=== PATIENT | male | born 1960 | race African-American/Black ===

== ENCOUNTER 2019-02-15 21:02 | Inpatient (IN) | payer MEDICAID ==
[~2019-02-15] VITALS: Ht 175.3 cm; Wt 89.8 kg
[2019-02-15 21:03] VITALS: BP 190/110
--- NOTE | 2019-02-15 21:03 | NUR ---
ED Nurse Note: Patient brought in by RA due to chest pain on right side. Stated that he has been hospitalized last 4 days ago due to haert attack. Pt has medical history of [place]. Alert and oriented, verbally responisve. Afebrile. No SOB. Breathing even and unlabored. BP is 190/110. Place pt on manager cardiac cath.
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
[2019-02-15] MEDS ORDERED: Aspirin Baby 81mg ORAL ONE (21:15)
[2019-02-15] MEDS ORDERED: Nitroglycerin Subl 0.4mg tab SL PRN (21:15)
--- NOTE | 2019-02-15 21:16 | NUR ---
ED Nurse Note: IV line established. Blood collected and sent to lab.
--- NOTE | 2019-02-15 21:17 | NUR ---
ED Nurse Note: Xray at bedside.
--- NOTE | 2019-02-15 21:23 | NUR ---
ED Nurse Note: NTG SL 1 tab given. BP 168/102.
[2019-02-15 21:36] LABS: HEMATOCRIT 41.5 % (42.0-52.0); HEMOGLOBIN 14.1 G/DL (14.2-18.0); LYMPHOCYTES % (AUTO) 15.3 % (20.0-45.0); MEAN CORPUSCULAR VOLUME 86 FL (80-99); MONOCYTES % (AUTO) 7.9 % (1.0-10.0); NEUTROPHILS % (AUTO) 74.7 % (45.0-75.0); PLATELET COUNT 335 K/UL (150-450); RED CELL DISTRIBUTION WIDTH 12.3 % (11.6-14.8); WHITE BLOOD COUNT 7.9 K/UL (4.8-10.8)
[2019-02-15 21:56] LABS: ANION GAP 4 mmol/L (5-15); BLOOD UREA NITROGEN 16 mg/dL (7-18); CALCIUM 8.7 MG/DL (8.5-10.1); CARBON DIOXIDE 31 MMOL/L (21-32); CHLORIDE 103 MMOL/L (98-107); CREATININE 1.4 MG/DL (0.55-1.30); POTASSIUM 3.3 MMOL/L (3.5-5.1); SODIUM 138 MMOL/L (136-145)
[2019-02-15 22:08] LABS: ALANINE AMINOTRANSFERASE 17 U/L (12-78); ALBUMIN 3.1 G/DL (3.4-5.0); ALBUMIN/GLOBULIN RATIO 0.6 (1.0-2.7); ALKALINE PHOSPHATASE 79 U/L (46-116); ASPARTATE AMINO TRANSFERASE 11 U/L (15-37)
[2019-02-15] MEDS ORDERED: Enoxaparin 80mg Inj SUBQ ONE (22:15)
--- NOTE | 2019-02-15 22:15 | NUR ---
ED Nurse Note: Urine collected and sent to lab.
[2019-02-15 22:23] LABS: BILIRUBIN,TOTAL 0.3 MG/DL (0.2-1.0)
[2019-02-15 22:27] LABS: APPEARANCE,URINE SLIGHTLY CLOUDY; BILIRUBIN, URINE NEGATIVE (NEGATIVE); COLOR,URINE YELLOW; GLUCOSE, URINE (UA) NEGATIVE (NEGATIVE); KETONES,URINE 1+ (NEGATIVE); PROTEIN,URINE 2+ (NEGATIVE)
[2019-02-15 22:28] LABS: LEUKOCYTE ESTERASE ,URINE NEGATIVE (NEGATIVE); NITRITE,URINE NEGATIVE (NEGATIVE); UROBILINOGEN,URINE 4 MG/DL (0.0-1.0)
--- NOTE | 2019-02-15 23:14 | NUR ---
ED Nurse Note: Snacks provided per request.
[2019-02-15 23:15] VITALS: BP 154/93
[2019-02-15] MEDS ORDERED: ASPIRIN81 MG ORAL (23:58)
[2019-02-16] VITALS (8 sets, daily range): BP systolic 130–170; BP diastolic 84–108
--- NOTE | 2019-02-16 00:13 | NUR ---
ED Nurse Note: Report given to Angelo TRIPLETT from Tele.
--- NOTE | 2019-02-16 00:26 | NUR ---
TRANSFER TO FLOOR: Patient transferred to Telemetry unit. Report given to Angelo TRIPLETT. Pt alert and oriented, verbally responsive. No SOB. Sinus rhythm. IV line on right AC 20g patent and intact. Med recon done. Swabs are sent. All belongings was given to the patient.
--- NOTE | 2019-02-16 00:38 | NUR ---
NURSE NOTES: received report from Sita TRIPLETT, pt. in bed awake, A/O x's4- able to make needs known, no signs or symptoms of acute cardiac or respiratory distress noted, bed alarm on, side rails up x's3 and safety brakes engaged, call light within easy each- pt. aware to ask for assist and not to ambulate as he does not have good strength in both feet. Pt. teaching done and pt. oriented to room, VS taken- will notify DR. Alexander as b/p is elevated- pt. mentioned that his blood pressure is usually high. Pt. mentioned that he does not remember the medications he is taking. Full body assessment done- skin intact - bilateral feet dry and cracked heels. pt. has urinal at bedside and within easy reach, RT. AC 20G- IV intact and patent. Safety measures continued, will continue with plan of care.
--- NOTE | 2019-02-16 00:44 | NUR ---
NURSE NOTES: Left message for DR. Alexander for new admission orders- awaiting for call back from doctor.
--- NOTE | 2019-02-16 01:37 | NUR ---
NURSE NOTES: Left message again for DR. Alexander for admission orders-awaiting for call back from doctor.
--- NOTE | 2019-02-16 02:20 | NUR ---
NURSE NOTES: Left message again for DR. Alexander for admission orders-awaiting for call back from doctor. Also made warehouse forklift operator Yeny Rivera aware- unable to reach Dr. Alexander. insurance sales supervisor will notify DR. Alexander.
--- NOTE | 2019-02-16 03:18 | NUR ---
NURSE NOTES: reassessed pt. - pt. in room watching television- denies chest pain or any other body pain. Pt. appears to be resting comfortably in room and no distress noted.
--- NOTE | 2019-02-16 03:54 | NUR ---
NURSE NOTES: made mixing house operator aware- pts. b/p now is 170/99 heart rate 72- she will contact DR. Alexander- awaiting for call back from doctor.
--- NOTE | 2019-02-16 04:53 | NUR ---
NURSE NOTES: reassessed pt. - pt. in bed asleep. Pt. appears to be resting comfortably in room and no distress noted.
--- NOTE | 2019-02-16 06:33 | NUR ---
NURSE NOTES: Dr. Alexander- called with admission orders- orders carried out.
--- NOTE | 2019-02-16 06:58 | NUR ---
HAND-OFF: Report given to My RN, pt. remains stable and no signs of distress noted- nurse aware to f/u on labs and do EKG / 2d Echo.
[2019-02-16 07:22] LABS: ANION GAP 9 mmol/L (5-15); BLOOD UREA NITROGEN 15 mg/dL (7-18); CALCIUM 8.4 MG/DL (8.5-10.1); CARBON DIOXIDE 25 MMOL/L (21-32); CHLORIDE 108 MMOL/L (98-107); CREATININE 1.1 MG/DL (0.55-1.30); POTASSIUM 3.5 MMOL/L (3.5-5.1); SODIUM 142 MMOL/L (136-145)
[2019-02-16 07:23] LABS: BASOPHILS % (AUTO) 1.3 % (0.0-2.0); EOSINOPHILS % (AUTO) 2.8 % (0.0-3.0); HEMATOCRIT 37.6 % (42.0-52.0); HEMOGLOBIN 12.7 G/DL (14.2-18.0); MEAN CORPUSCULAR VOLUME 86 FL (80-99); MONOCYTES % (AUTO) 12.4 % (1.0-10.0); NEUTROPHILS % (AUTO) 61.5 % (45.0-75.0); PLATELET COUNT 299 K/UL (150-450); RED BLOOD COUNT 4.38 M/UL (4.70-6.10); RED CELL DISTRIBUTION WIDTH 11.9 % (11.6-14.8); WHITE BLOOD COUNT 5.8 K/UL (4.8-10.8)
[2019-02-16 07:26] LABS: ALANINE AMINOTRANSFERASE 15 U/L (12-78); ALBUMIN 2.7 G/DL (3.4-5.0); ALBUMIN/GLOBULIN RATIO 0.6 (1.0-2.7); ALKALINE PHOSPHATASE 72 U/L (46-116); ASPARTATE AMINO TRANSFERASE 11 U/L (15-37); BILIRUBIN,TOTAL 0.3 MG/DL (0.2-1.0); CHOLESTEROL 114 MG/DL (< 200); HDL CHOLESTEROL 37 MG/DL (40-60); PHOSPHORUS 3.4 MG/DL (2.5-4.9); TRIGLYCERIDES 35 MG/DL (30-150)
--- NOTE | 2019-02-16 07:47 | NUR ---
NURSE NOTES: pt in bed having breakfast. Pt on federal aid coordinator no signs of cardiac or respiratory distress. Bed locked and in lowest position. CAll light is within reach of the pt. Will continue to follow plans of care.
[2019-02-16] MEDS: Atorvastatin 80mg tab ORAL SCH (08:17)
[2019-02-16] MEDS: Carvedilol 6.25mg Tab ORAL SCH ×2 (08:17→21:30)
[2019-02-16] MEDS: Imdur 30mg tab ORAL SCH (08:17)
[2019-02-16] MEDS: Aspirin Baby 81mg ORAL SCH (08:18)
[2019-02-16] MEDS ORDERED: Enoxaparin 80mg Inj SUBQ SCH (09:00)
--- NOTE | 2019-02-16 10:15 | NUR ---
NURSE NOTES: Notified Dr. Alexander about pt's ECG. No new orders given.
--- NOTE | 2019-02-16 10:58 | NUR ---
CASE MANAGEMENT:REVIEW 58 YR OLD MALE BIBA [facility]; CHEST PAIN SI: ACS. HTN 98.9 95 18 190/110 99% ON RA TROPONIN(+) 0.241 IS: ASA PO LOVENOX SQ NORVASC PO : TO TELEMETRY UNIT IS: IMDUR PO QD COREG PO Q12 ASA PO QD LOVENOX SQ BIS *INTERQUAL CRITERIA MET
--- NOTE | 2019-02-16 11:01 | Diagnostic Imaging Report ---
Indication: Chest pain Comparison: None A single view chest radiograph was obtained. Findings: Cardiomediastinal appearance is within normal limits for age and accounting for the low lung volumes. The lungs are clear. Pulmonary vascularity is appropriate. The diaphragmatic contour is smooth and costophrenic angles are sharp. No pleural effusions are identified. The bones are unremarkable. Impression: No acute findings
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
--- NOTE | 2019-02-16 11:32 | NUR ---
NURSE NOTES: notified Dr. Porras about low Mg levels.
--- NOTE | 2019-02-16 13:29 | NUR ---
HOMELESS COORDINATOR HC spoke with patient and patient is alert and oriented. Patient does not have a contact number. Patient states he is chronically homeless. Patient would like resources for a jail. Patient states he has been homeless for 1 year due to having an heart attack and losing his job and apartment. Patient states he has been living around [facility]. Patient doesn't have a veterans contact representative. Patient has no income. Patient states he doesn't suffer from substance or mental illness. HC referred patient to [facility]. Brendan at [facility] is willing to accept patient upon discharge. Please call Brendan before sending Patient to location. [facility] [address] [place] [address] . Hc provided resource for community clinics as well. Patient continues to require medical intervention. Will continue to monitor and assist as needed.
--- NOTE | 2019-02-16 14:40 | NUR ---
SS note This Sw met with patient due to homelessness. Elida, Homeless Coordinator also following and has located a bed with [facility] upon discharge. Patient is ambulatory with walker, but stating he has been weak with this. This Sw encouraged nursing to ambulate patient as well as P.T to evaluate/treat. Patient denied any substance abuse or mental health concerns. Patient does not verbalize any suicidal or homicidal ideations at this time. No other needs/concerns present at this time.
--- NOTE | 2019-02-16 14:50 | NUR ---
NURSE NOTES: pt has right upper quadrant pain, will give pain meds. pt is not complaining about chest pain.
--- NOTE | 2019-02-16 15:40 | Cardiology Report ---
APPROVED REPORT EXAM: Two-dimensional and M-mode echocardiogram with Doppler and color Doppler. INDICATION Chest Pain M-Mode DIMENSIONS IVSd1.4 (0.7-1.1cm)Left Atrium (MM)4.0 (1.6-4.0cm) LVDd5.1 (3.5-5.6cm)Aortic Root3.3 (2.0-3.7cm) PWd1.4 (0.7-1.1cm)Aortic Cusp Exc.2.0 (1.5-2.0cm) LVDs3.6 (2.5-4.0cm) PWs1.5 cm Global left ventricular hypokinesis. Normal left ventricular chamber size. Left ventricular ejection fraction estimated to be 35-40 %. Mild left ventricular hypertrophy. No evidence of pericardial effusion. All other cardiac chamber sizes are within normal limits. Focal aortic valve sclerosis with adequate cusp excursion. Thickened mitral valve leaflets with normal excursion. Mitral annulus and aortic root calcification. Normal pulmonic valve structure. Normal tricuspid valve structure. IVC is normal in size with physiological collapse. A color flow and spectral Doppler study was performed and revealed: No aortic regurgitation. Mild mitral regurgitation. Mitral diastolic velocities suggest mild left ventricular diastolic dysfunction (Grade I). No tricuspid regurgitation. No pulmonic regurgitation present.
--- NOTE | 2019-02-16 19:32 | Cardiology Progress Note ---
Assessment/Plan Assessment/Plan icm , abn mpi with neg cardiac cath at [facility] 02/05/2019 ekg unchanged mpi had showe ef 34% at [facility] trop no peak no ndair cr 1.4 no further kelley as all have just been performed he only co abd pain and gas deneis nay cp to m[place] [id number] Objective Last 24 Hour Vital Signs Date Time Temp Pulse Resp B/P (MAP) Pulse Ox O2 Delivery O2 Flow Rate FiO2 02/16/19 16:01 97.8 93 18 130/102 (111) 97 02/16/19 16:00 80 02/16/19 16:00 1.0 02/16/19 12:00 98.1 82 20 156/108 (124) 98 02/16/19 12:00 1.0 02/16/19 12:00 85 02/16/19 09:00 Nasal Cannula 2.0 02/16/19 08:17 81 156/99 02/16/19 08:17 156/99 02/16/19 08:10 97.0 81 18 156/99 (118) 97 02/16/19 08:00 1.0 02/16/19 08:00 80 02/16/19 04:00 2.0 02/16/19 03:56 66 02/16/19 03:51 97.9 72 18 170/99 (122) 100 02/16/19 00:53 97.0 85 18 169/97 (121) 94 02/16/19 00:47 2.0 02/16/19 00:40 Nasal Cannula 2.0 02/16/19 00:33 83 02/16/19 00:26 98.2 88 19 144/87 97 02/16/19 00:26 98.2 88 19 144/87 97 Room Air 02/16/19 00:19 95 154/93 02/15/19 23:15 98.5 95 23 154/93 96 Room Air 02/15/19 21:23 190/110 02/15/19 21:03 99.0 97 21 190/110 97 Room Air 02/15/19 21:03 95 18 Room Air 02/15/19 20:55 99.0 95 18 190/110 (136) 99 Room Air Intake and Output 02/15/19 02/16/19 19:00 07:00 # Voids 3 Laboratory Tests Test 02/15/19 21:16 02/15/19 22:03 02/16/19 06:55 02/16/19 14:00 White Blood Count 7.9 K/UL (4.8-10.8) 5.8 K/UL (4.8-10.8) Red Blood Count 4.80 M/UL (4.70-6.10) 4.38 M/UL (4.70-6.10) L Hemoglobin 14.1 G/DL (14.2-18.0) L 12.7 G/DL (14.2-18.0) L Hematocrit 41.5 % (42.0-52.0) L 37.6 % (42.0-52.0) L Mean Corpuscular Volume 86 FL (80-99) 86 FL (80-99) Mean Corpuscular Hemoglobin 29.3 PG (27.0-31.0) 29.1 PG (27.0-31.0) Mean Corpuscular Hemoglobin Concent 33.9 G/DL (32.0-36.0) 33.9 G/DL (32.0-36.0) Red Cell Distribution Width 12.3 % (11.6-14.8) 11.9 % (11.6-14.8) Platelet Count 335 K/UL (150-450) 299 K/UL (150-450) Mean Platelet Volume 6.1 FL (6.5-10.1) L 5.7 FL (6.5-10.1) L Neutrophils (%) (Auto) 74.7 % (45.0-75.0) 61.5 % (45.0-75.0) Lymphocytes (%) (Auto) 15.3 % (20.0-45.0) L 22.0 % (20.0-45.0) Monocytes (%) (Auto) 7.9 % (1.0-10.0) 12.4 % (1.0-10.0) H Eosinophils (%) (Auto) 1.0 % (0.0-3.0) 2.8 % (0.0-3.0) Basophils (%) (Auto) 1.0 % (0.0-2.0) 1.3 % (0.0-2.0) Sodium Level 138 MMOL/L (136-145) 142 MMOL/L (136-145) Potassium Level 3.3 MMOL/L (3.5-5.1) L 3.5 MMOL/L (3.5-5.1) Chloride Level 103 MMOL/L (98-107) 108 MMOL/L (98-107) H Carbon Dioxide Level 31 MMOL/L (21-32) 25 MMOL/L (21-32) Anion Gap 4 mmol/L (5-15) L 9 mmol/L (5-15) Blood Urea Nitrogen 16 mg/dL (7-18) 15 mg/dL (7-18) Creatinine 1.4 MG/DL (0.55-1.30) H 1.1 MG/DL (0.55-1.30) Estimat Glomerular Filtration Rate 52.2 mL/min (>60) > 60 mL/min (>60) Glucose Level 116 MG/DL (74-106) H 98 MG/DL (74-106) Calcium Level 8.7 MG/DL (8.5-10.1) 8.4 MG/DL (8.5-10.1) L Total Bilirubin 0.3 MG/DL (0.2-1.0) 0.3 MG/DL (0.2-1.0) Aspartate Amino Transf (AST/SGOT) 11 U/L (15-37) L 11 U/L (15-37) L Alanine Aminotransferase (ALT/SGPT) 17 U/L (12-78) 15 U/L (12-78) Alkaline Phosphatase 79 U/L (46-116) 72 U/L (46-116) Troponin I 0.241 ng/mL (0.000-0.056) 0.220 ng/mL (0.000-0.056) 0.218 ng/mL (0.000-0.056) Pro-B-Type Natriuretic Peptide 995 pg/mL (0-125) H Total Protein 8.2 G/DL (6.4-8.2) 7.3 G/DL (6.4-8.2) Albumin 3.1 G/DL (3.4-5.0) L 2.7 G/DL (3.4-5.0) L Globulin 5.1 g/dL 4.6 g/dL Albumin/Globulin Ratio 0.6 (1.0-2.7) L 0.6 (1.0-2.7) L Serum Alcohol < 3 mg/dL Urine Color Yellow Urine Appearance Slightly cloudy Urine pH 5.0 (4.5-8.0) Urine Specific [place] 1.030 (1.005-1.035) Urine Protein 2+ (NEGATIVE) H Urine Glucose (UA) Negative (NEGATIVE) Urine Ketones 1+ (NEGATIVE) H Urine Blood 3+ (NEGATIVE) H Urine Nitrite Negative (NEGATIVE) Urine Bilirubin Negative (NEGATIVE) Urine Urobilinogen 4 MG/DL (0.0-1.0) H Urine Leukocyte Esterase Negative (NEGATIVE) Urine RBC 15-20 /HPF (0 - 0) H Urine WBC 0-2 /HPF (0 - 0) Urine Squamous Epithelial Cells Occasional /LPF Urine Bacteria Moderate /HPF (NONE) H Urine Mucus Many /LPF (NONE/OCC) H Urine Opiates Screen Negative (NEGATIVE) Urine Barbiturates Screen Negative (NEGATIVE) Phencyclidine (PCP) Screen Negative (NEGATIVE) Urine Amphetamines Screen Negative (NEGATIVE) Urine Benzodiazepines Screen Negative (NEGATIVE) Urine Cocaine Screen Negative (NEGATIVE) Urine Marijuana (THC) Screen Negative (NEGATIVE) Phosphorus Level 3.4 MG/DL (2.5-4.9) Magnesium Level 1.7 MG/DL (1.8-2.4) L Triglycerides Level 35 MG/DL (30-150) Cholesterol Level 114 MG/DL (< 200) LDL Cholesterol 71 mg/dL (<100) HDL Cholesterol 37 MG/DL (40-60) L Cholesterol/HDL Ratio 3.1 (3.3-4.4) L Microbiology Date/Time Source Procedure Growth Status 02/15/19 23:50 Rectum Received Alessio Liao MD Feb 16, 2019 19:32
--- NOTE | 2019-02-16 19:44 | NUR ---
HAND-OFF: Report given to Brennen/RN, pt stable.
--- NOTE | 2019-02-16 19:45 | NUR ---
NURSE NOTES: Got report from My TRIPLETT. Pt in stable condition. Denies any pain. No s/s of distress or discomfort noted. Pt resting in bed comfortably. Bed in low and locked position, call light within reach, bedside table within reach. Continue to monitor.
[2019-02-16] MEDS: Enoxaparin Sodium 300mg/3ml vial SUBQ SCH (21:32)
[2019-02-17] VITALS: BP 150/90
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
[2019-02-17 04:00] VITALS: BP 117/64
--- NOTE | 2019-02-17 07:00 | NUR ---
HAND-OFF: Report given to My TRIPLETT.
--- NOTE | 2019-02-17 08:04 | NUR ---
NURSE NOTES: pt had breakfast. Pt on epic ambulatory analysts no signs of cardiac or respiratory distress. Pt is complaining of right upper abdomen pain 3/10. Bed locked and in lowest position. CAll light is within reach of the pt. Will continue to follow plans of care. pt might get DC today.
[2019-02-17 09:40] VITALS: BP 165/100
[2019-02-17] MEDS: Carvedilol 6.25mg Tab ORAL SCH ×2 (09:44→21:21)
[2019-02-17] MEDS: Atorvastatin 80mg tab ORAL SCH (09:44)
[2019-02-17] MEDS: Aspirin Baby 81mg ORAL SCH (09:44)
[2019-02-17] MEDS: Imdur 30mg tab ORAL SCH (09:45)
[2019-02-17] MEDS: Enoxaparin Sodium 300mg/3ml vial SUBQ SCH ×2 (09:51→21:22)
--- NOTE | 2019-02-17 14:11 | History & Physical ---
History and Physical History & Physicial Dictated for Int Med-Dr Alexander no. [id number]. Reji Bess MD Feb 17, 2019 14:11
--- NOTE | 2019-02-17 14:54 | Cardiology Report ---
APPROVED REPORT EKG Measurement Heart [id number] Normal sinus rhythm Possible Left atrial enlargement Left ventricular hypertrophy T wave abnormality, consider lateral ischemia Abnormal ECG
--- NOTE | 2019-02-17 15:26 | Cardiology Progress Note ---
Assessment/Plan Problem List: (1) Hypertension (2) ACS (acute coronary syndrome) (3) Chronic systolic (congestive) heart failure (4) CAD (coronary artery disease) Status: stable, progressing Status Narrative Mr Brownlee has CAD, w/ recent cath showing patent RCA stent and no significant L system disease ( [facility] 02/05/19) He has ischemic cm w /EF 35-40 % by ECHO this admission He has HTN, and BP is not well controlled. He had mild troponin elevation on adm, c/w demand ischemia . Assessment/Plan Will continue asa, plavix, statin and coreg. Add losartan for afterload reduction and BP control. Add aldactone for cm/chf followup labs in am Subjective ROS Limited/Unobtainable: No Subjective Cardiology for Pt reports no chest pain. Dyspnea has improved Objective Last 24 Hour Vital Signs Date Time Temp Pulse Resp B/P (MAP) Pulse Ox O2 Delivery O2 Flow Rate FiO2 02/17/19 09:45 100 165/100 02/17/19 09:45 165/100 02/17/19 09:44 96 165/100 02/17/19 09:40 99.0 100 20 165/100 (121) 98 02/17/19 04:00 97.7 81 18 117/64 (81) 96 02/17/19 04:00 77 02/17/19 00:00 98.5 80 18 150/90 (110) 100 02/17/19 00:00 78 02/16/19 21:30 85 138/84 02/16/19 21:30 85 138/84 02/16/19 21:00 Nasal Cannula 2.0 02/16/19 20:00 86 02/16/19 20:00 98.6 85 18 138/84 (102) 100 02/16/19 16:01 97.8 93 18 130/102 (111) 97 02/16/19 16:00 80 02/16/19 16:00 1.0 General Appearance: WD/WN, no apparent distress, alert EENT: PERRL/EOMI Neck: supple, no JVD Rhythm: NSR Cardiovascular: normal rate, regular rhythm, no gallop/murmur Respiratory/Chest: other - coarse BS bilat. no rales or wheezes Intake and Output 02/16/19 02/17/19 19:00 07:00 Intake Total 820 ml Balance 820 ml Intake Oral 820 ml # Voids 5 3 Microbiology Date/Time Source Procedure Growth Status 02/15/19 22:03 Urine,Clean Catch Urine Culture - Preliminary NO GROWTH AFTER 24 HOURS Resulted 02/15/19 23:50 Rectum Received Marisol Soliman MD Feb 17, 2019 15:26
--- NOTE | 2019-02-17 16:27 | NUR ---
PT Note PT anatoliy completed, treatment initiated. Patient has decreased muscle strength and balance with decreased coordination in all extremities requiring assist in mobility and gait. Patient needs PT to increase his muscle strength and balance to improve his safety in mobility and gait. Addendum: 02/17/19 at 1628 by DESMOND COTTO PT Amended: Links added.
--- NOTE | 2019-02-17 17:30 | NUR ---
CASE MANAGEMENT: REVIEW SI: ACS . HTN . CAD T 99.0 HR 102 RR 20 BP 165/100 SAT 98% NC/2L IS: ASA PO ISOSORBIDE PO QD COZAAR PO QD LOVENOX SUBQ Q12HR NORVASC PO Q12HR COREG PO Q12HR ALDACTONE PO QD PT EVAL TO TELEMETRY UNIT STATUS DCP: PATIENT REPORTS HOMELESSNESS
--- NOTE | 2019-02-17 19:00 | History and Physical Report ---
DATE OF ADMISSION: 02/15/2019 CHIEF COMPLAINT: The patient is a 58-year-old male, who presents with a chief complaint of chest pain. HISTORY OF PRESENT ILLNESS: The patient was admitted to [facility] at the beginning of February. The patient is status post cardiac catheterization on February 05, 2019. The patient's ejection fraction was 34% at that time. The patient presented to [place] emergency room complaining of one-day history of chest pain. Chest pain was substernal. The patient states "my heart is out." The patient states a friend had to restart his heart. The patient presented to [place] emergency room. The patient is admitted with chest pain to rule out acute coronary syndrome. PAST MEDICAL HISTORY: Significant for congestive heart failure. PAST SURGICAL HISTORY: Significant for cardiac catheterization on February 05, 2019 at [facility]. CURRENT MEDICATIONS: Aspirin 81 mg p.o. daily. ALLERGIES: No known drug allergies. SOCIAL HISTORY: The patient is single and is disabled. The patient admits to tobacco use of one cigarette daily. The patient admits to occasional alcohol use. PHYSICAL EXAMINATION: VITAL SIGNS: Temperature 97.9, respirations 18, pulse 72, blood pressure 170/99. GENERAL: The patient is a well-developed, well-nourished male, in no apparent distress. HEENT: Eyes, pupils are equal and responsive to light and accommodation. Extraocular movements are intact. NECK: Supple without lymphadenopathy. CHEST: Lungs are clear to auscultation bilaterally without wheezes or rales. CARDIOVASCULAR: Regular rate. S1, S2 normal without murmurs, rubs, or gallops. ABDOMEN: Soft, nontender, and nondistended. Positive bowel sounds. No evidence of hepatosplenomegaly. Currently, no rebound or guarding noted. EXTREMITIES: Negative for clubbing, cyanosis, or edema. NEUROLOGIC: Cranial nerves II through XII are grossly intact without focal deficits. Motor strength is 5/5 bilaterally. Deep tendon reflexes are 2+ plantar. LABORATORY STUDIES: WBC 7.9, hemoglobin 14.1, hematocrit 41.5, platelets 335,000. Sodium 138, potassium 3.3, chloride 103, CO2 31, BUN 16, creatinine 1.4, glucose 116. Troponin level was reported at 0.241 (elevated). BNP was elevated 995. Chest x-ray is reported as no acute disease. ASSESSMENT: This is a 58-year-old male. 1. Chest pain. 2. Elevated troponin. 3. Congestive heart failure. 4. Hypertension. TREATMENT: 1. Chest pain/elevated troponin. A Cardiology consultation has been obtained with Dr. Alessio Liao. An echocardiogram is pending. Initial troponin level was elevated. We will follow recommendations of Cardiology. The patient had recent workup by Cardiology at [facility]. Attempt to receive records from [facility]. 2. Congestive heart failure, as above. A Cardiology consultation has been obtained with Dr. Alessio Liao. 3. Hypertension. The patient has been started empirically on amlodipine and Coreg. Reji Bess M.D. DR: BEA JOB#: [id number] CC:
[2019-02-17 20:00] VITALS: BP 152/93
--- NOTE | 2019-02-17 20:19 | NUR ---
HAND-OFF: Report given to /RN endorsed plan of care. Pt has a DC order and will be going to [facility] upon DC. Physical therapy evaluation has been done.
[2019-02-18] VITALS: BP 145/95
[2019-02-18 04:00] VITALS: BP 150/90
--- NOTE | 2019-02-18 07:00 | NUR ---
HAND-OFF: Report given to Elida TRIPLETT.
--- NOTE | 2019-02-18 07:15 | NUR ---
NURSE NOTES: I received the patient resting in bed. Bed in the lowest position and call light within reach. Patient does not display any signs of distress or SOB. I will continue to monitor the patient and implement care.
[2019-02-18 07:35] LABS: BASOPHILS % (AUTO) 0.7 % (0.0-2.0); EOSINOPHILS % (AUTO) 1.5 % (0.0-3.0); HEMATOCRIT 38.5 % (42.0-52.0); HEMOGLOBIN 12.9 G/DL (14.2-18.0); LYMPHOCYTES % (AUTO) 18.9 % (20.0-45.0); MEAN CORPUSCULAR VOLUME 88 FL (80-99); MONOCYTES % (AUTO) 10.2 % (1.0-10.0); NEUTROPHILS % (AUTO) 68.7 % (45.0-75.0); PLATELET COUNT 336 K/UL (150-450); RED BLOOD COUNT 4.37 M/UL (4.70-6.10); WHITE BLOOD COUNT 7.2 K/UL (4.8-10.8)
[2019-02-18 07:44] LABS: ANION GAP 3 mmol/L (5-15); BLOOD UREA NITROGEN 15 mg/dL (7-18); CARBON DIOXIDE 29 MMOL/L (21-32); CHLORIDE 101 MMOL/L (98-107); CREATININE 1.1 MG/DL (0.55-1.30); POTASSIUM 3.8 MMOL/L (3.5-5.1); SODIUM 133 MMOL/L (136-145)
[2019-02-18 08:00] VITALS: BP 159/107
[2019-02-18] MEDS ORDERED: Losartan 25mg tab ORAL SCH (09:00)
[2019-02-18] MEDS: Spironolactone 25mg tab ORAL SCH (09:05)
[2019-02-18] MEDS: Carvedilol 6.25mg Tab ORAL SCH (09:05)
[2019-02-18] MEDS: Atorvastatin 80mg tab ORAL SCH (09:05)
[2019-02-18] MEDS: Aspirin Baby 81mg ORAL SCH (09:05)
[2019-02-18] MEDS: Imdur 30mg tab ORAL SCH (09:05)
[2019-02-18] MEDS: Enoxaparin Sodium 300mg/3ml vial SUBQ SCH ×2 (09:50→22:12)
[2019-02-18 12:00] VITALS: BP 136/92
--- NOTE | 2019-02-18 13:26 | Internal Med Progress Note ---
Subjective Date of Service: Feb 18, 2019 Physician Name Reji Bess Attending Physician Denis Alexander MD Current Medications Medications (Trade) Dose Ordered Sig/Leda Route PRN Reason Start Time Stop Time Status Last Admin Dose Admin Amlodipine Besylate (Norvasc) 5 mg EVERY 12 HOURS ORAL 02/16/19 21:00 03/18/19 20:59 02/18/19 09:05 Aspirin (ASA) 81 mg DAILY ORAL 02/16/19 09:00 03/18/19 08:59 02/18/19 09:05 Atorvastatin Calcium (Lipitor) 80 mg DAILY ORAL 02/16/19 09:00 03/18/19 08:59 02/18/19 09:05 Carvedilol (Coreg) 6.25 mg EVERY 12 HOURS ORAL 02/16/19 09:00 03/18/19 08:59 02/18/19 09:05 Clopidogrel Bisulfate (Plavix) 75 mg DAILY ORAL 02/17/19 09:00 03/19/19 08:59 02/18/19 09:05 Enoxaparin Sodium (Lovenox) 90 mg Q12HR SUBQ 02/16/19 21:00 03/18/19 08:59 02/18/19 09:50 Isosorbide Mononitrate (Imdur) 30 mg DAILY ORAL 02/16/19 09:00 03/18/19 08:59 02/18/19 09:05 Losartan Potassium (Cozaar) 25 mg DAILY ORAL 02/18/19 09:00 03/20/19 08:59 02/18/19 09:06 Nitroglycerin (Ntg) 0.4 mg Q5M PRN SL Prn Chest Pain 02/15/19 21:15 03/17/19 21:14 02/15/19 21:23 Spironolactone (Aldactone) 25 mg DAILY ORAL 02/18/19 09:00 03/20/19 08:59 02/18/19 09:05 Allergies: Coded Allergies: No Known Allergies (Unverified , 02/15/19) ROS Limited/Unobtainable: No Constitutional: Reports: no symptoms HEENT: Reports: no symptoms Cardiovascular: Reports: chest pain Respiratory: Reports: no symptoms Gastrointestinal/Abdominal: Reports: no symptoms Genitourinary: Reports: no symptoms Neurologic/Psychiatric: Reports: no symptoms Subjective 58 YO M admitted with chest pain and elevated troponin. Now hypertension urgency. Cover for Int Kevin-Dr Alexander Objective Last Vital Signs Date Time Temp Pulse Resp B/P (MAP) Pulse Ox O2 Delivery O2 Flow Rate FiO2 02/18/19 12:00 98.4 92 20 136/92 (107) 95 02/18/19 09:00 Room Air 02/17/19 21:00 2.0 Laboratory Tests Test 02/18/19 05:30 White Blood Count 7.2 K/UL (4.8-10.8) Red Blood Count 4.37 M/UL (4.70-6.10) L Hemoglobin 12.9 G/DL (14.2-18.0) L Hematocrit 38.5 % (42.0-52.0) L Mean Corpuscular Volume 88 FL (80-99) Mean Corpuscular Hemoglobin 29.5 PG (27.0-31.0) Mean Corpuscular Hemoglobin Concent 33.5 G/DL (32.0-36.0) Red Cell Distribution Width 13.0 % (11.6-14.8) Platelet Count 336 K/UL (150-450) Mean Platelet Volume 5.7 FL (6.5-10.1) L Neutrophils (%) (Auto) 68.7 % (45.0-75.0) Lymphocytes (%) (Auto) 18.9 % (20.0-45.0) L Monocytes (%) (Auto) 10.2 % (1.0-10.0) H Eosinophils (%) (Auto) 1.5 % (0.0-3.0) Basophils (%) (Auto) 0.7 % (0.0-2.0) Sodium Level 133 MMOL/L (136-145) L Potassium Level 3.8 MMOL/L (3.5-5.1) Chloride Level 101 MMOL/L (98-107) Carbon Dioxide Level 29 MMOL/L (21-32) Anion Gap 3 mmol/L (5-15) L Blood Urea Nitrogen 15 mg/dL (7-18) Creatinine 1.1 MG/DL (0.55-1.30) Estimat Glomerular Filtration Rate > 60 mL/min (>60) Glucose Level 88 MG/DL (74-106) Calcium Level 9.0 MG/DL (8.5-10.1) Troponin I 0.174 ng/mL (0.000-0.056) Pro-B-Type Natriuretic Peptide 618 pg/mL (0-125) H Microbiology Date/Time Source Procedure Growth Status 02/15/19 23:50 Nasal Nares MRSA Culture - Final NO METHICILLIN RESISTANT STAPH AUREUS... Complete 02/15/19 22:03 Urine,Clean Catch Urine Culture - Final NO GROWTH AFTER 48 HOURS Complete 02/15/19 23:50 Rectum - Final NO CARBAPENEM-RESISTANT ENTEROBACTERI... Complete 02/15/19 23:50 Rectum VRE Culture - Final NO VANCOMYCIN RESISTANT ENTEROCOCCUS ... Complete Intake and Output 02/17/19 02/18/19 18:59 06:59 Intake Total 800 ml 240 ml Output Total 600 ml Balance 800 ml -360 ml Intake Oral 240 ml Other 800 ml Output Urine Total 600 ml # Voids 3 Objective PHYSICAL EXAMINATION: GENERAL: The patient is a well-developed, well-nourished male, in no apparent distress. HEENT: Eyes, pupils are equal and responsive to light and accommodation. Extraocular movements are intact. NECK: Supple without lymphadenopathy. CHEST: Lungs are clear to auscultation bilaterally without wheezes or rales. CARDIOVASCULAR: Regular rate. S1, S2 normal without murmurs, rubs, or gallops. ABDOMEN: Soft, nontender, and nondistended. Positive bowel sounds. No evidence of hepatosplenomegaly. Currently, no rebound or guarding noted. EXTREMITIES: Negative for clubbing, cyanosis, or edema. NEUROLOGIC: Cranial nerves II through XII are grossly intact without focal deficits. Motor strength is 5/5 bilaterally. Deep tendon reflexes are 2+ plantar. Assessment/Plan Assessment/Plan ASSESSMENT: This is a 58-year-old male. 1. Chest pain. 2. Elevated troponin. 3. Congestive heart failure. 4. Hypertension. 5. Ischemic cardiomyopathy 6. Coronary artery disease TREATMENT: 1. Chest pain/elevated troponin. A Cardiology consultation has been obtained with Dr. Alessio Liao. An echocardiogram LVEF=35-40%. Initial troponin level was elevated. We will follow recommendations of Cardiology. The patient had recent cardiac cath by Cardiology at [facility]. Attempt to receive records from [facility]. 2. Congestive heart failure, as above. LVEF=35-40%. A Cardiology consultation has been obtained with Dr. Alessio Liao. 3. Hypertension urgency. Continue losartan, spironolactone, coreg and amlodipine per cardiology. Add PRN clonidine Reji Bess MD Feb 18, 2019 13:26
--- NOTE | 2019-02-18 15:16 | Cardiology Progress Note ---
Assessment/Plan Problem List: (1) Hypertension (2) ACS (acute coronary syndrome) (3) Chronic systolic (congestive) heart failure (4) CAD (coronary artery disease) Status: stable, progressing Status Narrative Mr Brownlee has CAD, w/ recent cath showing patent RCA stent and no significant L system disease ( [facility] 02/05/19) He has ischemic cm w /EF 35-40 % by ECHO this admission He has HTN, poorly controlled He had mild troponin elevation on adm, c/w demand ischemia . Assessment/Plan Continue asa, statin and coreg for CAD Uptitrate losartan for BP control and afterload reduction w/ cm. Followup am labs. Subjective ROS Limited/Unobtainable: No Subjective Cardiology for Pt reports mild chest pain and dyspnea w/ walking. Ambulated in halls w/ PT today. Objective Last 24 Hour Vital Signs Date Time Temp Pulse Resp B/P (MAP) Pulse Ox O2 Delivery O2 Flow Rate FiO2 02/18/19 12:00 98.4 92 20 136/92 (107) 95 02/18/19 11:56 91 02/18/19 09:06 159/107 02/18/19 09:05 98 159/107 02/18/19 09:05 98 159/107 02/18/19 09:05 159/107 02/18/19 09:00 Room Air 02/18/19 08:00 98.0 98 17 159/107 (124) 96 02/18/19 07:56 106 02/18/19 04:00 87 02/18/19 04:00 97.9 87 20 150/90 (110) 99 02/18/19 00:00 87 02/18/19 00:00 98.1 96 20 145/95 (112) 97 02/17/19 21:21 88 152/93 02/17/19 21:21 88 152/93 02/17/19 21:00 Nasal Cannula 2.0 02/17/19 20:00 99.2 88 18 152/93 (112) 99 02/17/19 20:00 95 02/17/19 16:00 94 General Appearance: WD/WN, no apparent distress, alert EENT: PERRL/EOMI Neck: non-tender, supple, no JVD Rhythm: NSR Cardiovascular: normal rate, regular rhythm, no gallop/murmur Respiratory/Chest: lungs clear Abdomen: non tender, soft, no mass Extremities: no swelling Intake and Output 02/17/19 02/18/19 18:59 06:59 Intake Total 800 ml 240 ml Output Total 600 ml Balance 800 ml -360 ml Intake Oral 240 ml Other 800 ml Output Urine Total 600 ml # Voids 3 Laboratory Tests Test 02/18/19 05:30 White Blood Count 7.2 K/UL (4.8-10.8) Red Blood Count 4.37 M/UL (4.70-6.10) L Hemoglobin 12.9 G/DL (14.2-18.0) L Hematocrit 38.5 % (42.0-52.0) L Mean Corpuscular Volume 88 FL (80-99) Mean Corpuscular Hemoglobin 29.5 PG (27.0-31.0) Mean Corpuscular Hemoglobin Concent 33.5 G/DL (32.0-36.0) Red Cell Distribution Width 13.0 % (11.6-14.8) Platelet Count 336 K/UL (150-450) Mean Platelet Volume 5.7 FL (6.5-10.1) L Neutrophils (%) (Auto) 68.7 % (45.0-75.0) Lymphocytes (%) (Auto) 18.9 % (20.0-45.0) L Monocytes (%) (Auto) 10.2 % (1.0-10.0) H Eosinophils (%) (Auto) 1.5 % (0.0-3.0) Basophils (%) (Auto) 0.7 % (0.0-2.0) Sodium Level 133 MMOL/L (136-145) L Potassium Level 3.8 MMOL/L (3.5-5.1) Chloride Level 101 MMOL/L (98-107) Carbon Dioxide Level 29 MMOL/L (21-32) Anion Gap 3 mmol/L (5-15) L Blood Urea Nitrogen 15 mg/dL (7-18) Creatinine 1.1 MG/DL (0.55-1.30) Estimat Glomerular Filtration Rate > 60 mL/min (>60) Glucose Level 88 MG/DL (74-106) Calcium Level 9.0 MG/DL (8.5-10.1) Troponin I 0.174 ng/mL (0.000-0.056) Pro-B-Type Natriuretic Peptide 618 pg/mL (0-125) H Microbiology Date/Time Source Procedure Growth Status 02/15/19 23:50 Nasal Nares MRSA Culture - Final NO METHICILLIN RESISTANT STAPH AUREUS... Complete 02/15/19 22:03 Urine,Clean Catch Urine Culture - Final NO GROWTH AFTER 48 HOURS Complete 02/15/19 23:50 Rectum - Final NO CARBAPENEM-RESISTANT ENTEROBACTERI... Complete 02/15/19 23:50 Rectum VRE Culture - Final NO VANCOMYCIN RESISTANT ENTEROCOCCUS ... Complete Marisol Soliman MD Feb 18, 2019 15:16
[2019-02-18 16:00] VITALS: BP 145/85
--- NOTE | 2019-02-18 19:15 | NUR ---
HAND-OFF: Report given to Jennifer English RN.
--- NOTE | 2019-02-18 19:36 | NUR ---
NURSE NOTES: RECEIVED PATIENT RESTING IN BED, DENIES CHEST PAIN AT THIS TIME. FALL PRECAUTIONS IN PLACE: CALL LIGHT, BEDSIDE TABLE AND URINAL WITHIN REACH, BED IN LOW POSITION AND BED ALARM ON. WILL CONTINUE WITH PLAN OF CARE.
[2019-02-18 20:00] VITALS: BP 153/92
[2019-02-18] MEDS: Carvedilol 12.5mg tab ORAL SCH (21:21)
[2019-02-19] VITALS: BP 145/80
[2019-02-19 04:00] VITALS: BP 154/90
--- NOTE | 2019-02-19 07:24 | NUR ---
HAND-OFF: Report given to Roddy PANIAGUA RN. PATIENT RESTING IN BED, NO SIGNS OF DISTRESS NOTED.
--- NOTE | 2019-02-19 07:56 | NUR ---
NURSE NOTES: pt had breakfast. Pt on bus monitor no signs of cardiac or respiratory distress. Pt is complaining pain. Bed locked and in lowest position. Call light is within reach of the pt. Will continue to follow plans of care. Plans of DC to [facility].
[2019-02-19 08:13] LABS: BASOPHILS % (AUTO) 1.2 % (0.0-2.0); EOSINOPHILS % (AUTO) 1.5 % (0.0-3.0); HEMATOCRIT 37.9 % (42.0-52.0); HEMOGLOBIN 12.8 G/DL (14.2-18.0); LYMPHOCYTES % (AUTO) 21.7 % (20.0-45.0); MEAN CORPUSCULAR VOLUME 86 FL (80-99); MONOCYTES % (AUTO) 10.5 % (1.0-10.0); NEUTROPHILS % (AUTO) 65.2 % (45.0-75.0); PLATELET COUNT 344 K/UL (150-450); RED BLOOD COUNT 4.41 M/UL (4.70-6.10); WHITE BLOOD COUNT 6.9 K/UL (4.8-10.8)
[2019-02-19 08:48] LABS: ANION GAP 11 mmol/L (5-15); BLOOD UREA NITROGEN 16 mg/dL (7-18); CALCIUM 9.2 MG/DL (8.5-10.1); CARBON DIOXIDE 24 MMOL/L (21-32); CHLORIDE 105 MMOL/L (98-107); CREATININE 1.1 MG/DL (0.55-1.30); SODIUM 140 MMOL/L (136-145)
[2019-02-19 09:00] VITALS: BP 146/116
[2019-02-19] MEDS ORDERED: Losartan 50mg tab ORAL SCH (09:00)
[2019-02-19] MEDS: Carvedilol 12.5mg tab ORAL SCH ×2 (09:38→20:57)
[2019-02-19] MEDS: Spironolactone 25mg tab ORAL SCH (09:38)
[2019-02-19] MEDS: Aspirin Baby 81mg ORAL SCH (09:38)
[2019-02-19] MEDS: Atorvastatin 80mg tab ORAL SCH (09:39)
[2019-02-19] MEDS: Imdur 30mg tab ORAL SCH (09:39)
[2019-02-19] MEDS: Enoxaparin Sodium 300mg/3ml vial SUBQ SCH ×2 (09:41→20:56)
[2019-02-19] MEDS ORDERED: NORVASC5 MG ORAL (11:13)
[2019-02-19] MEDS ORDERED: SPIRONOLACTONE25 MG ORAL (11:13)
[2019-02-19] MEDS ORDERED: ISOSORBIDE MONO30 M1 ORAL (11:13)
[2019-02-19] MEDS ORDERED: COZAAR50 MG ORAL (11:13)
[2019-02-19] MEDS ORDERED: PLAVIX75 MG ORAL (11:13)
[2019-02-19] MEDS ORDERED: COREG12.5 MG ORAL (11:13)
--- NOTE | 2019-02-19 11:19 | Pulmonology Progress Note ---
Assessment/Plan Problems: (1) ACS (acute coronary syndrome) (2) Chronic systolic (congestive) heart failure (3) Hypertension (4) CAD (coronary artery disease) (5) Homelessness Assessment/Plan doing better pt is homeless and trying to stay in the hospital as long as possible. social service consult dc planning prescription written and signed. Subjective ROS Limited/Unobtainable: No Constitutional: Reports: no symptoms HEENT: Repors: no symptoms Respiratory: Reports: no symptoms Cardiovascular: Reports: no symptoms Allergies: Coded Allergies: No Known Allergies (Unverified , 02/15/19) Objective Last 24 Hour Vital Signs Date Time Temp Pulse Resp B/P (MAP) Pulse Ox O2 Delivery O2 Flow Rate FiO2 02/19/19 09:39 104 146/116 02/19/19 09:39 146/116 02/19/19 09:38 104 146/116 02/19/19 09:38 146/116 02/19/19 09:00 98.1 104 20 146/116 (126) 95 02/19/19 04:00 92 02/19/19 04:00 98.4 91 20 154/90 (111) 100 02/19/19 00:00 95 02/19/19 00:00 98.6 95 20 145/80 (101) 96 02/18/19 21:22 98 153/92 02/18/19 21:21 98 153/92 02/18/19 21:00 Room Air 02/18/19 20:00 99.6 98 20 153/92 (112) 98 02/18/19 20:00 98 02/18/19 16:00 98.4 91 19 145/85 (105) 95 02/18/19 15:29 90 02/18/19 12:00 98.4 92 20 136/92 (107) 95 02/18/19 11:56 91 Intake and Output 02/18/19 02/19/19 19:00 07:00 Intake Total 250 ml 120 ml Output Total 500 ml 1000 ml Balance -250 ml -880 ml Intake Oral 250 ml 120 ml Output Urine Total 500 ml 1000 ml # Voids 4 # Bowel Movements 1 General Appearance: WD/WN HEENT: normocephalic Respiratory/Chest: chest wall non-tender, lungs clear Cardiovascular: normal rate, regularly irregular Abdomen: soft, non tender, non distended Laboratory Tests 02/19/19 06:32: White Blood Count 6.9, Red Blood Count 4.41L, Hemoglobin 12.8L, Hematocrit 37.9L , Mean Corpuscular Volume 86, Mean Corpuscular Hemoglobin 29.1, Mean Corpuscular Hemoglobin Concent 33.9, Red Cell Distribution Width 12.0, Platelet Count 344, Mean Platelet Volume 5.7L, Neutrophils (%) (Auto) 65.2, Lymphocytes ( %) (Auto) 21.7, Monocytes (%) (Auto) 10.5H, Eosinophils (%) (Auto) 1.5, Basophils (%) (Auto) 1.2, Sodium Level 140, Potassium Level 4.0, Chloride Level 105, Carbon Dioxide Level 24, Anion Gap 11, Blood Urea Nitrogen 16, Creatinine 1.1, Estimat Glomerular Filtration Rate > 60, Glucose Level 86, Calcium Level 9.2, Troponin I 0.137H Current Medications Medications (Trade) Dose Ordered Sig/Leda Route PRN Reason Start Time Stop Time Status Last Admin Dose Admin Amlodipine Besylate (Norvasc) 5 mg EVERY 12 HOURS ORAL 02/16/19 21:00 03/18/19 20:59 02/19/19 09:39 Aspirin (ASA) 81 mg DAILY ORAL 02/16/19 09:00 03/18/19 08:59 02/19/19 09:38 Atorvastatin Calcium (Lipitor) 80 mg DAILY ORAL 02/16/19 09:00 03/18/19 08:59 02/19/19 09:39 Carvedilol (Coreg) 12.5 mg EVERY 12 HOURS ORAL 02/18/19 21:00 03/18/19 08:59 02/19/19 09:38 Clonidine HCl (Catapres Tab) 0.1 mg Q4H PRN ORAL For High Blood Pressure 02/18/19 13:30 03/20/19 13:29 Clopidogrel Bisulfate (Plavix) 75 mg DAILY ORAL 02/17/19 09:00 03/19/19 08:59 02/19/19 09:38 Enoxaparin Sodium (Lovenox) 90 mg Q12HR SUBQ 02/16/19 21:00 03/18/19 08:59 02/19/19 09:41 Isosorbide Mononitrate (Imdur) 30 mg DAILY ORAL 02/16/19 09:00 03/18/19 08:59 02/19/19 09:39 Losartan Potassium (Cozaar) 50 mg DAILY ORAL 02/19/19 09:00 03/20/19 08:59 02/19/19 09:38 Nitroglycerin (Ntg) 0.4 mg Q5M PRN SL Prn Chest Pain 02/15/19 21:15 03/17/19 21:14 02/15/19 21:23 Spironolactone (Aldactone) 25 mg DAILY ORAL 02/18/19 09:00 03/20/19 08:59 02/19/19 09:38 Pao Porras MD Feb 19, 2019 11:19
--- NOTE | 2019-02-19 11:40 | NUR ---
NURSE NOTES: spoke to sales and production manager /homeless coordinator about pt being weak to walk and needing a walker for assistance to walk. Awaiting a response from Elida/ homeless coordinator to see if space is still available and if using a walker and being weak will be an issue for acceptance to facility.
[2019-02-19 12:00] VITALS: BP 152/97
--- NOTE | 2019-02-19 12:09 | NUR ---
NURSE NOTES: fax prescription to [facility] pharmacy to fill out 6 prescriptions for this pt. Per George they will bring medications over before pt is DC today.
--- NOTE | 2019-02-19 12:35 | NUR ---
CASE MANAGEMENT:REVIEW 02/19/19 SI: CHEST PAIN. ELEVATED TROPONIN HYPERTENSIVE URGENCY 98.1 104 20 146/116 95% ON RA H/H-12.8/37.9 TROPONIN(+) 0.137 IS: COZAAR PO Q12 ALDACTONE PO QD PLAVIX PO QD LOVENOX SQ Q12 NORVASC PO Q12 IMDUR PO QD LIPITOR PO QHS ASA PO QD : TELEMETRY STATUS DCP: HOMELESS ~ HOMELESS MILL HAND IS AWARE
[2019-02-19 16:00] VITALS: BP 147/92
--- NOTE | 2019-02-19 17:12 | NUR ---
Per Elida Smith, Homeless coordinator, Brendan from [facility] requested patient to be sent there in AM. Per Elida, Pt. will be accepted at [facility] in AM.
--- NOTE | 2019-02-19 18:31 | Internal Med Progress Note ---
Subjective Date of Service: Feb 19, 2019 Physician Name Reji Bess Attending Physician Denis Alexander MD Current Medications Medications (Trade) Dose Ordered Sig/Leda Route PRN Reason Start Time Stop Time Status Last Admin Dose Admin Amlodipine Besylate (Norvasc) 5 mg EVERY 12 HOURS ORAL 02/16/19 21:00 03/18/19 20:59 02/19/19 09:39 Aspirin (ASA) 81 mg DAILY ORAL 02/16/19 09:00 03/18/19 08:59 02/19/19 09:38 Atorvastatin Calcium (Lipitor) 80 mg DAILY ORAL 02/16/19 09:00 03/18/19 08:59 02/19/19 09:39 Carvedilol (Coreg) 12.5 mg EVERY 12 HOURS ORAL 02/18/19 21:00 03/18/19 08:59 02/19/19 09:38 Clonidine HCl (Catapres Tab) 0.1 mg Q4H PRN ORAL For High Blood Pressure 02/18/19 13:30 03/20/19 13:29 Clopidogrel Bisulfate (Plavix) 75 mg DAILY ORAL 02/17/19 09:00 03/19/19 08:59 02/19/19 09:38 Enoxaparin Sodium (Lovenox) 90 mg Q12HR SUBQ 02/16/19 21:00 03/18/19 08:59 02/19/19 09:41 Isosorbide Mononitrate (Imdur) 30 mg DAILY ORAL 02/16/19 09:00 03/18/19 08:59 02/19/19 09:39 Losartan Potassium (Cozaar) 50 mg DAILY ORAL 02/19/19 09:00 03/20/19 08:59 02/19/19 09:38 Nitroglycerin (Ntg) 0.4 mg Q5M PRN SL Prn Chest Pain 02/15/19 21:15 03/17/19 21:14 02/15/19 21:23 Spironolactone (Aldactone) 25 mg DAILY ORAL 02/18/19 09:00 03/20/19 08:59 02/19/19 09:38 Allergies: Coded Allergies: No Known Allergies (Unverified , 02/15/19) ROS Limited/Unobtainable: No Constitutional: Reports: no symptoms HEENT: Reports: no symptoms Cardiovascular: Reports: no symptoms Respiratory: Reports: no symptoms Gastrointestinal/Abdominal: Reports: no symptoms Genitourinary: Reports: no symptoms Neurologic/Psychiatric: Reports: no symptoms Subjective 58 YO M admitted with chest pain and elevated troponin. Now hypertension urgency. Cover for Whitney Alexander Objective Last Vital Signs Date Time Temp Pulse Resp B/P (MAP) Pulse Ox O2 Delivery O2 Flow Rate FiO2 02/19/19 09:39 104 146/116 02/19/19 09:00 98.1 20 95 02/18/19 21:00 Room Air 02/17/19 21:00 2.0 Laboratory Tests Test 02/19/19 06:32 White Blood Count 6.9 K/UL (4.8-10.8) Red Blood Count 4.41 M/UL (4.70-6.10) L Hemoglobin 12.8 G/DL (14.2-18.0) L Hematocrit 37.9 % (42.0-52.0) L Mean Corpuscular Volume 86 FL (80-99) Mean Corpuscular Hemoglobin 29.1 PG (27.0-31.0) Mean Corpuscular Hemoglobin Concent 33.9 G/DL (32.0-36.0) Red Cell Distribution Width 12.0 % (11.6-14.8) Platelet Count 344 K/UL (150-450) Mean Platelet Volume 5.7 FL (6.5-10.1) L Neutrophils (%) (Auto) 65.2 % (45.0-75.0) Lymphocytes (%) (Auto) 21.7 % (20.0-45.0) Monocytes (%) (Auto) 10.5 % (1.0-10.0) H Eosinophils (%) (Auto) 1.5 % (0.0-3.0) Basophils (%) (Auto) 1.2 % (0.0-2.0) Sodium Level 140 MMOL/L (136-145) Potassium Level 4.0 MMOL/L (3.5-5.1) Chloride Level 105 MMOL/L (98-107) Carbon Dioxide Level 24 MMOL/L (21-32) Anion Gap 11 mmol/L (5-15) Blood Urea Nitrogen 16 mg/dL (7-18) Creatinine 1.1 MG/DL (0.55-1.30) Estimat Glomerular Filtration Rate > 60 mL/min (>60) Glucose Level 86 MG/DL (74-106) Calcium Level 9.2 MG/DL (8.5-10.1) Troponin I 0.137 ng/mL (0.000-0.056) Intake and Output 02/18/19 02/19/19 18:59 06:59 Intake Total 250 ml 120 ml Output Total 500 ml 1000 ml Balance -250 ml -880 ml Intake Oral 250 ml 120 ml Output Urine Total 500 ml 1000 ml # Voids 4 # Bowel Movements 1 Objective PHYSICAL EXAMINATION: GENERAL: The patient is a well-developed, well-nourished male, in no apparent distress. HEENT: Eyes, pupils are equal and responsive to light and accommodation. Extraocular movements are intact. NECK: Supple without lymphadenopathy. CHEST: Lungs are clear to auscultation bilaterally without wheezes or rales. CARDIOVASCULAR: Regular rate. S1, S2 normal without murmurs, rubs, or gallops. ABDOMEN: Soft, nontender, and nondistended. Positive bowel sounds. No evidence of hepatosplenomegaly. Currently, no rebound or guarding noted. EXTREMITIES: Negative for clubbing, cyanosis, or edema. NEUROLOGIC: Cranial nerves II through XII are grossly intact without focal deficits. Motor strength is 5/5 bilaterally. Deep tendon reflexes are 2+ plantar. Assessment/Plan Assessment/Plan ASSESSMENT: This is a 58-year-old male. 1. Chest pain. 2. Elevated troponin. 3. Congestive heart failure. 4. Hypertension. 5. Ischemic cardiomyopathy 6. Coronary artery disease TREATMENT: 1. Chest pain/elevated troponin. A Cardiology consultation has been obtained with Dr. Alessio Liao. An echocardiogram LVEF=35-40%. Initial troponin level was elevated-trending down now. We will follow recommendations of Cardiology. The patient had recent cardiac cath by Cardiology at [facility]. Attempt to receive records from [facility]. 2. Congestive heart failure, as above. LVEF=35-40%. A Cardiology consultation has been obtained with Dr. Alessio Liao. 3. Hypertension urgency. Continue losartan, spironolactone, coreg and amlodipine per cardiology. Add PRN clonidine Reji Bess MD Feb 19, 2019 18:31
--- NOTE | 2019-02-19 19:40 | NUR ---
NURSE NOTES: Received pt and report from UZIEL Pepe. Observed pt resting in bed with both eyes open and watching television. Pt is A/Ox3. traffic monitor specialist is in placed, IV site intact, asymptomatic, and patent. Bed is in the lowest position and locked. Call light and bedside table within reach. No signs/symptoms of acute distress noted at this time. Will continue plan of care.
--- NOTE | 2019-02-19 19:50 | NUR ---
HAND-OFF: Report given to Matilda/rn pt in stable condition.
[2019-02-19 20:00] VITALS: BP 149/90
--- NOTE | 2019-02-19 20:02 | Cardiology Progress Note ---
Assessment/Plan Assessment/Plan 1. Coronary artery disease, status post stent in the posterolateral branch with negative cardiac catheterization approximately 10 days ago at [facility]. 2. Cardiomyopathy with ejection fraction 35 to 40%. 3. History of strokes previously with no hemodynamically significant cervical carotid stenosis; however, 60% stenosis in both cavernous carotid he seems to be very comfortable bp is still elevated will increase the cozaar further not appear to be sig chf trop min increased is on dapt statin , bb dc planning soon Subjective Cardiovascular: Reports: chest pain, lightheadedness Respiratory: Reports: shortness of breath Gastrointestinal/Abdominal: Reports: abdominal pain Genitourinary: Denies: burning Objective Last 24 Hour Vital Signs Date Time Temp Pulse Resp B/P (MAP) Pulse Ox O2 Delivery O2 Flow Rate FiO2 02/19/19 18:58 Nasal Cannula 2.0 02/19/19 16:00 99.3 90 20 147/92 (110) 95 02/19/19 16:00 91 02/19/19 12:00 98.1 95 19 152/97 (115) 95 02/19/19 12:00 96 02/19/19 09:39 104 146/116 02/19/19 09:39 146/116 02/19/19 09:38 104 146/116 02/19/19 09:38 146/116 02/19/19 09:00 98.1 104 20 146/116 (126) 95 02/19/19 08:00 88 02/19/19 04:00 92 02/19/19 04:00 98.4 91 20 154/90 (111) 100 02/19/19 00:00 95 02/19/19 00:00 98.6 95 20 145/80 (101) 96 02/18/19 21:22 98 153/92 02/18/19 21:21 98 153/92 02/18/19 21:00 Room Air General Appearance: no apparent distress Neck: supple Cardiovascular: normal rate Respiratory/Chest: lungs clear Abdomen: normal bowel sounds, non tender, soft Extremities: no swelling Intake and Output 02/18/19 02/19/19 18:59 06:59 Intake Total 250 ml 120 ml Output Total 500 ml 1000 ml Balance -250 ml -880 ml Intake Oral 250 ml 120 ml Output Urine Total 500 ml 1000 ml # Voids 4 # Bowel Movements 1 Laboratory Tests Test 02/19/19 06:32 White Blood Count 6.9 K/UL (4.8-10.8) Red Blood Count 4.41 M/UL (4.70-6.10) L Hemoglobin 12.8 G/DL (14.2-18.0) L Hematocrit 37.9 % (42.0-52.0) L Mean Corpuscular Volume 86 FL (80-99) Mean Corpuscular Hemoglobin 29.1 PG (27.0-31.0) Mean Corpuscular Hemoglobin Concent 33.9 G/DL (32.0-36.0) Red Cell Distribution Width 12.0 % (11.6-14.8) Platelet Count 344 K/UL (150-450) Mean Platelet Volume 5.7 FL (6.5-10.1) L Neutrophils (%) (Auto) 65.2 % (45.0-75.0) Lymphocytes (%) (Auto) 21.7 % (20.0-45.0) Monocytes (%) (Auto) 10.5 % (1.0-10.0) H Eosinophils (%) (Auto) 1.5 % (0.0-3.0) Basophils (%) (Auto) 1.2 % (0.0-2.0) Sodium Level 140 MMOL/L (136-145) Potassium Level 4.0 MMOL/L (3.5-5.1) Chloride Level 105 MMOL/L (98-107) Carbon Dioxide Level 24 MMOL/L (21-32) Anion Gap 11 mmol/L (5-15) Blood Urea Nitrogen 16 mg/dL (7-18) Creatinine 1.1 MG/DL (0.55-1.30) Estimat Glomerular Filtration Rate > 60 mL/min (>60) Glucose Level 86 MG/DL (74-106) Calcium Level 9.2 MG/DL (8.5-10.1) Troponin I 0.137 ng/mL (0.000-0.056) Alessio Liao MD Feb 19, 2019 20:02
[2019-02-20] VITALS: BP 150/98
--- NOTE | 2019-02-20 01:55 | NUR ---
NURSE NOTES: Pt is asleep in bed; arousable to voice. No signs/symptoms of acute distress noted at this time. Will continue plan of care.
[2019-02-20 04:00] VITALS: BP 148/97
[2019-02-20 06:28] LABS: BASOPHILS % (AUTO) 2.4 % (0.0-2.0); EOSINOPHILS % (AUTO) 2.2 % (0.0-3.0); HEMATOCRIT 38.3 % (42.0-52.0); LYMPHOCYTES % (AUTO) 22.3 % (20.0-45.0); MEAN CORPUSCULAR VOLUME 86 FL (80-99); MONOCYTES % (AUTO) 11.3 % (1.0-10.0); NEUTROPHILS % (AUTO) 61.9 % (45.0-75.0); PLATELET COUNT 341 K/UL (150-450); RED BLOOD COUNT 4.43 M/UL (4.70-6.10); RED CELL DISTRIBUTION WIDTH 11.7 % (11.6-14.8); WHITE BLOOD COUNT 6.5 K/UL (4.8-10.8)
[2019-02-20 06:42] LABS: ANION GAP 10 mmol/L (5-15); BLOOD UREA NITROGEN 21 mg/dL (7-18); CALCIUM 9.1 MG/DL (8.5-10.1); CARBON DIOXIDE 25 MMOL/L (21-32); CHLORIDE 106 MMOL/L (98-107); CREATININE 1.2 MG/DL (0.55-1.30); POTASSIUM 4.2 MMOL/L (3.5-5.1); SODIUM 141 MMOL/L (136-145)
--- NOTE | 2019-02-20 07:32 | NUR ---
HAND-OFF: Report given to UZIEL Pepe. Plan of care endorsed.
--- NOTE | 2019-02-20 08:08 | NUR ---
NURSE NOTES: pt. in stable condition, ate breakfast. Pt on ekg monitor tech no signs or cardiac or respiratory distress as this time. Bed in locked and in lowest position, call light within reach. Plans for DC this morning. Will continue to follow plans of care.
[2019-02-20 08:30] VITALS: BP 148/92
[2019-02-20] MEDS ORDERED: Losartan 50mg tab ORAL SCH (09:00)
--- NOTE | 2019-02-20 09:42 | Cardiology Progress Note ---
Assessment/Plan Assessment/Plan 1. Coronary artery disease, status post stent in the posterolateral branch with negative cardiac catheterization approximately 10 days ago at [facility]. 2. Cardiomyopathy with ejection fraction 35 to 40%. 3. History of strokes previously with no hemodynamically significant cervical carotid stenosis; however, 60% stenosis in both cavernous carotid he seems to be very comfortable bp is still elevated, now on higer carcamo of cozaar as of this am , not appear to be sig chf trop min increased demand related is on dapt statin , bb has some crakles on exam will start on low dose diuretics dc planning soon Subjective Cardiovascular: Denies: chest pain, lightheadedness Respiratory: Denies: shortness of breath Gastrointestinal/Abdominal: Denies: abdominal pain Genitourinary: Denies: burning Subjective leg pain Objective Last 24 Hour Vital Signs Date Time Temp Pulse Resp B/P (MAP) Pulse Ox O2 Delivery O2 Flow Rate FiO2 02/20/19 08:44 Nasal Cannula 2.0 02/20/19 08:30 99.1 83 20 148/92 (110) 100 02/20/19 04:00 85 02/20/19 04:00 98.6 84 17 148/97 (114) 98 02/20/19 00:00 98.6 85 19 150/98 (115) 96 02/20/19 00:00 85 02/19/19 20:57 88 149/90 02/19/19 20:57 88 149/90 02/19/19 20:00 97.5 88 19 149/90 (109) 97 02/19/19 20:00 91 02/19/19 18:58 Nasal Cannula 2.0 02/19/19 16:00 99.3 90 20 147/92 (110) 95 02/19/19 16:00 91 02/19/19 12:00 98.1 95 19 152/97 (115) 95 02/19/19 12:00 96 General Appearance: no apparent distress, alert Neck: supple Cardiovascular: normal rate Respiratory/Chest: lungs clear, crackles/rales Abdomen: normal bowel sounds, non tender, soft Extremities: no swelling Intake and Output 02/19/19 02/20/19 19:00 07:00 Intake Total 740 ml Output Total 1000 ml 1150 ml Balance -260 ml -1150 ml Intake Oral 740 ml Output Urine Total 1000 ml 1150 ml Laboratory Tests Test 02/20/19 05:40 White Blood Count 6.5 K/UL (4.8-10.8) Red Blood Count 4.43 M/UL (4.70-6.10) L Hemoglobin 13.0 G/DL (14.2-18.0) L Hematocrit 38.3 % (42.0-52.0) L Mean Corpuscular Volume 86 FL (80-99) Mean Corpuscular Hemoglobin 29.2 PG (27.0-31.0) Mean Corpuscular Hemoglobin Concent 33.9 G/DL (32.0-36.0) Red Cell Distribution Width 11.7 % (11.6-14.8) Platelet Count 341 K/UL (150-450) Mean Platelet Volume 5.7 FL (6.5-10.1) L Neutrophils (%) (Auto) 61.9 % (45.0-75.0) Lymphocytes (%) (Auto) 22.3 % (20.0-45.0) Monocytes (%) (Auto) 11.3 % (1.0-10.0) H Eosinophils (%) (Auto) 2.2 % (0.0-3.0) Basophils (%) (Auto) 2.4 % (0.0-2.0) H Sodium Level 141 MMOL/L (136-145) Potassium Level 4.2 MMOL/L (3.5-5.1) Chloride Level 106 MMOL/L (98-107) Carbon Dioxide Level 25 MMOL/L (21-32) Anion Gap 10 mmol/L (5-15) Blood Urea Nitrogen 21 mg/dL (7-18) H Creatinine 1.2 MG/DL (0.55-1.30) Estimat Glomerular Filtration Rate > 60 mL/min (>60) Glucose Level 88 MG/DL (74-106) Calcium Level 9.1 MG/DL (8.5-10.1) Troponin I 0.123 ng/mL (0.000-0.056) Alessio Liao MD Feb 20, 2019 09:42
[2019-02-20] MEDS: Aspirin Baby 81mg ORAL SCH (09:44)
[2019-02-20] MEDS: Carvedilol 12.5mg tab ORAL SCH (09:45)
[2019-02-20] MEDS: Spironolactone 25mg tab ORAL SCH (09:45)
[2019-02-20] MEDS: Atorvastatin 80mg tab ORAL SCH (09:45)
[2019-02-20 09:46] VITALS: BP 148/92
[2019-02-20] MEDS: Imdur 30mg tab ORAL SCH (09:46)
[2019-02-20] MEDS: Enoxaparin Sodium 300mg/3ml vial SUBQ SCH (09:47)
--- NOTE | 2019-02-20 11:12 | Pulmonology Progress Note ---
Assessment/Plan Problems: (1) ACS (acute coronary syndrome) (2) Chronic systolic (congestive) heart failure (3) Hypertension (4) CAD (coronary artery disease) (5) Homelessness Assessment/Plan doing better pt is homeless and trying to stay in the hospital as long as possible. social service consult dc planning prescription written and signed. Subjective ROS Limited/Unobtainable: No Constitutional: Reports: no symptoms HEENT: Repors: no symptoms Respiratory: Reports: no symptoms Allergies: Coded Allergies: No Known Allergies (Unverified , 02/15/19) Objective Last 24 Hour Vital Signs Date Time Temp Pulse Resp B/P (MAP) Pulse Ox O2 Delivery O2 Flow Rate FiO2 02/20/19 09:46 83 148/92 02/20/19 09:46 148/92 02/20/19 09:45 83 148/92 02/20/19 09:44 148/92 02/20/19 08:44 Nasal Cannula 2.0 02/20/19 08:30 99.1 83 20 148/92 (110) 100 02/20/19 04:00 85 02/20/19 04:00 98.6 84 17 148/97 (114) 98 02/20/19 00:00 98.6 85 19 150/98 (115) 96 02/20/19 00:00 85 02/19/19 20:57 88 149/90 02/19/19 20:57 88 149/90 02/19/19 20:00 97.5 88 19 149/90 (109) 97 02/19/19 20:00 91 02/19/19 18:58 Nasal Cannula 2.0 02/19/19 16:00 99.3 90 20 147/92 (110) 95 02/19/19 16:00 91 02/19/19 12:00 98.1 95 19 152/97 (115) 95 02/19/19 12:00 96 Intake and Output 02/19/19 02/20/19 19:00 07:00 Intake Total 740 ml Output Total 1000 ml 1150 ml Balance -260 ml -1150 ml Intake Oral 740 ml Output Urine Total 1000 ml 1150 ml General Appearance: WD/WN HEENT: normocephalic, atraumatic Respiratory/Chest: chest wall non-tender, lungs clear Cardiovascular: normal peripheral pulses, normal rate Abdomen: normal bowel sounds, soft, non tender Genitourinary: normal external genitalia Extremities: no clubbing Skin: no rash Laboratory Tests 02/20/19 05:40: White Blood Count 6.5, Red Blood Count 4.43L, Hemoglobin 13.0L, Hematocrit 38.3L , Mean Corpuscular Volume 86, Mean Corpuscular Hemoglobin 29.2, Mean Corpuscular Hemoglobin Concent 33.9, Red Cell Distribution Width 11.7, Platelet Count 341, Mean Platelet Volume 5.7L, Neutrophils (%) (Auto) 61.9, Lymphocytes ( %) (Auto) 22.3, Monocytes (%) (Auto) 11.3H, Eosinophils (%) (Auto) 2.2, Basophils (%) (Auto) 2.4H, Sodium Level 141, Potassium Level 4.2, Chloride Level 106, Carbon Dioxide Level 25, Anion Gap 10, Blood Urea Nitrogen 21H, Creatinine 1.2, Estimat Glomerular Filtration Rate > 60, Glucose Level 88, Calcium Level 9.1, Troponin I 0.123H Current Medications Medications (Trade) Dose Ordered Sig/Leda Route PRN Reason Start Time Stop Time Status Last Admin Dose Admin Amlodipine Besylate (Norvasc) 5 mg EVERY 12 HOURS ORAL 02/16/19 21:00 03/18/19 20:59 02/20/19 09:46 Aspirin (ASA) 81 mg DAILY ORAL 02/16/19 09:00 03/18/19 08:59 02/20/19 09:44 Atorvastatin Calcium (Lipitor) 80 mg DAILY ORAL 02/16/19 09:00 03/18/19 08:59 02/20/19 09:45 Carvedilol (Coreg) 12.5 mg EVERY 12 HOURS ORAL 02/18/19 21:00 03/18/19 08:59 02/20/19 09:45 Clonidine HCl (Catapres Tab) 0.1 mg Q4H PRN ORAL For High Blood Pressure 02/18/19 13:30 03/20/19 13:29 Clopidogrel Bisulfate (Plavix) 75 mg DAILY ORAL 02/17/19 09:00 03/19/19 08:59 02/20/19 09:45 Enoxaparin Sodium (Lovenox) 90 mg Q12HR SUBQ 02/16/19 21:00 03/18/19 08:59 02/20/19 09:47 Furosemide (Lasix) 20 mg QOD ORAL 02/22/19 09:00 03/24/19 08:59 Isosorbide Mononitrate (Imdur) 30 mg DAILY ORAL 02/16/19 09:00 03/18/19 08:59 02/20/19 09:46 Losartan Potassium (Cozaar) 50 mg BID ORAL 02/20/19 09:00 03/22/19 08:59 02/20/19 09:44 Nitroglycerin (Ntg) 0.4 mg Q5M PRN SL Prn Chest Pain 02/15/19 21:15 03/17/19 21:14 02/15/19 21:23 Spironolactone (Aldactone) 25 mg DAILY ORAL 02/18/19 09:00 03/20/19 08:59 02/20/19 09:45 Pao Porras MD Feb 20, 2019 11:12
--- NOTE | 2019-02-20 12:20 | NUR ---
NURSE NOTES: pt. discharge in stable condition left the hospital via Taxi to [facility] [employer]. classroom monitor taken off from pt as well as IV line; pt site is not bleeding and was covered with gauze. Called Brendan coordinator from facility he is aware of pt arriving today. Pt took all his belonging with him and signed belonging sheet, pt took walker with him. Pt ate before he left and took an additional meal with him. Pt was also provided a set of cloths to wear. Pt medications were given to him inside of bag. Pt was educated about all the medication he has to take. Education was reenforce a few time before pt departed. Pt verbalized medications he will be taking starting today. Pt was also given community resources that he may get assistance in the future.
--- NOTE | 2019-02-21 07:26 | Discharge Summary ---
Discharge Summary Discharge Summary _ DATE OF ADMISSION: 02/15/2019 DATE OF DISCHARGE: 02/20/2019 DISCHARGED BY: Dr. Alexander REASON FOR ADMISSION: 58 years old male with past medical history of hypertension, presented to emergency department with complaint of chest pain , which occurred 2 hours prior to presentation to ED. No shortness of breath. No palpitations. No exertional component. No fever or chills. No nausea or vomiting. Patient apparently was recently hospitalized at [facility] and was discharged 3 days ago. Patient reported having angiogram at that time, but denied stent placement. Patient received heart medication upon discharge, which he was not taking. He had no paperwork to confirm that . Upon evaluation blood pressure was significantly elevated 190/110. Pulse oximetry was stable on room air. EKG revealed normal sinus rhythm, left ventricular hypertrophy with T wave inversion. Troponin was mildly elevated 0.241. Pro BNP 995. Chest x-ray revealed cardiomegaly, otherwise no acute findings. Laboratory work-up revealed no leukocytosis, stable hemoglobin and hematocrit. Potassium 3.3. BUN 16, creatinine 1.4. Glucose 116. Albumin 3.1. Urine toxicology screen was negative. Serum alcohol level was negative. Urinalysis revealed no evidence of urinary tract infection. In emergency department patient received aspirin and admitted to telemetry floor for further management. CONSULTANTS: nursery worker Dr. Liao pulmonary /critical care Dr. Porras [facility] COURSE: Patient admitted to telemetry floor. Serial troponin were followed and revealed mild elevation. Troponin trending down. Telemetry showed no acute changes. Repeated EKG still showed normal sinus rhythm with left ventricular hypertrophy and T wave inversion, no acute ischemic changes. Echocardiogram demonstrated global left ventricular hypokinesis with ejection fraction 35 to 40% and mild left ventricular hypertrophy. No evidence of pericardial effusion. Patient started on anticoagulation with Lovenox. Dual antiplatelet therapy with aspirin and statin initiated. Guideline directed medical therapy for congestive heart failure provided with diuretic, beta-elvia, ARB. Volumes were closely monitor. Pro BNP trended down from 985 to 618. Patient started on long-acting nitrates. Blood pressure was managed with calcium channel elvia , beta-elvia , ARB and diuretic. Blood pressure improved. Lipid panel remained stable. Pain management was addressed as needed. Records from [facility] showed that the patient had on 02/05 cardiac catheterization via right radial approach . LAD and circumflex stable. RCA patent. Noted a stent in posterior lateral branch , which was patent. T wave changes in V5 V6 compared with EKG at [facility] and found that those changes were not new. Patient also undergone myocardial perfusion scan test at [facility] which showed ejection fraction of 35% and inferior wall ischemia , for which he underwent cardiac catheterization as mentioned above. Cardiac catheterization did not show any evidence of coronary disease, based on report. Ischemia evaluation was recently performed with negative cardiac catheterization. Patient did not appear to be in significant congestive heart failure as per nursery worker. Granulizing Machine Operator recommended continue dual antiplatelet therapy and statin as well as the guideline directed medical therapy for congestive heart failure. Patient also had a component of renal insufficiency. Renal parameters and electrolytes were closely monitored. Electrolytes corrected as needed/potassium and nephrotoxins were avoided. Prior to discharge creatinine from 1.4 down to 1.2. Patient also had history of stroke in the past with no hemodynamically significant carotid stenosis. 60% of stenosis in both cavernous carotid arteries were noted on angiogram on February 01, 2019 at [facility]. Supplemental oxygen provided and titrated to keep pulse oximetry above 92%. Pulse oximetry was stable on room air . Blood pressure stabilized. All treating physicians had agreed that patient was medically stable for discharge to an outpatient disposition. Homeless coordinator arranged for patient to be transferred to [facility] . Patient clinically stabilized and was ready for discharge . Prescription provided FINAL DIAGNOSES: Chest pain Acute coronary syndrome Chronic systolic congestive heart failure Coronary artery disease, status post stent in the posterolateral branch / negative catheterization 10 days ago Ischemic cardiomyopathy with ejection fraction 35 to 40% History of stroke Carotid stenosis with 60% stenosis in both cavernous carotid arteries Hypertension with hypertensive urgency initially Homelessness DISCHARGE MEDICATIONS: See Medication Reconciliation list. DISCHARGE INSTRUCTIONS: Patient was discharged to [facility] . Follow up with primary care provider in one week. I have been assigned to dictate discharge summary for this account. I was not involved in the patient's management. Lindsay Morales NP Feb 21, 2019 07:26
== END 2019-02-20 12:25 | disposition home or self-care (01) | DRG 198 ==
LOC: EDBD 21:02 → EMR 22:15 → 2E 22:56 → EDBEDREQ 23:42
DX: I24.9 Acute ischemic heart disease, unspecified (principal); I50.22 Chronic systolic (congestive) heart failure; I11.0 Hypertensive heart disease with heart failure; I25.10 Atherosclerotic heart disease of native coronary artery without angina pectoris; Z95.5 Presence of coronary angioplasty implant and graft; Z59.0 Homelessness; I25.5 Ischemic cardiomyopathy; I24.8 Other forms of acute ischemic heart disease; I16.0 Hypertensive urgency
CPT/HCPCS: 36415; 71045; 80048; 80053; 80061; 80307; 81003; 83735; 83880; 84100; 84484; 85025; 87081; 87086; 93005; 93306; 96372; 99285; G0480; J8499